=== PATIENT | female | born 1990 | race Caucasian/White ===

== ENCOUNTER 2016-06-17 14:40 | Inpatient (IN) | payer BC, MEDICAID ==
[~2016-06-17] VITALS: Ht 170.2 cm; Wt 85.9 kg
[~2016-06-17 14:40] MED LIST: MOTRIN 600600 MG/TAB PO; PERCOCET 325 MG1 TA2 PO; PRENATAL1 TA1 PO
[2016-07-18] VITALS (16 sets, daily range): BP systolic 109–127; BP diastolic 50–86; PULSE 65–92; TEMP 97.1–98.7
[2016-07-18] MEDS ORDERED: MOTRIN 800800 MG/TAB PO (06:27)
[2016-07-18] MEDS ORDERED: PERCOCET 325 MG1 TA2 PO (06:27)
[2016-07-18 06:40] LABS: BASO % 0.3 % (0.0-2.0); EOS # 0.1 (0.0-0.7); EOS % 0.4 % (0-4.0); GRAN # 9.3 (1.4-6.5); GRAN % 78.3 % (42.2-75.2); HEMOGLOBIN 12.4 g/dl (12.5-16.0); LYMPH # 1.6 (1.2-3.4); LYMPH % 13.5 % (20.0-51.0); MEAN CELL VOLUME 92 fl (80.0-100.0); MEAN CORPUSCULAR HEMOGLOBIN 31 pg (27.0-31.0); MEAN CORPUSCULAR HGB CONC 34 g/dl (33.0-37.0); MEAN PLATELET VOLUME 11.1 fl (7.4-10.4); MONO # 0.8 (0.1-0.6); MONO % 6.7 % (1.7-9.3); PLATELET COUNT 187 K/mm3 (130-400); RED BLOOD COUNT 3.95 M/mm3 (4.10-5.30); REDCELL DISTRIBUTION WIDTH-CV 13.3 % (11.5-14.5); WHITE BLOOD COUNT 11.9 K/mm3 (4.8-10.8)
[2016-07-18 06:46] LABS: HEMATOCRIT 36.3 % (37.0-47.0)
[2016-07-19 07:50] VITALS: BP 107/63; PULSE 69; TEMP 97.6
[2016-07-19 08:12] LABS: HEMATOCRIT 34.7 % (37.0-47.0); HEMOGLOBIN 11.4 g/dl (12.5-16.0)
[2016-07-19] MEDS ORDERED: PERCOCET 325 MG1 TA2 PO (09:53)
[2016-07-19] MEDS ORDERED: IBU800 M1 PO (09:54)
[2016-07-19 16:30] VITALS: BP 98/53; PULSE 68; TEMP 97.7
[2016-07-19 20:00] VITALS: BP 110/70; PULSE 66; TEMP 98.8
[2016-07-20 07:35] VITALS: BP 119/66; PULSE 70; TEMP 97.9
== END 2016-07-20 11:10 | disposition home or self-care (01) | DRG 766 ==
LOC: OB 07-18 05:41 → LDR 07-18 06:20 → OB 07-20 11:10 → EDSTATUS 08-08 06:19 → LDRO 08-08 14:39
PROVIDERS: Obstetrics & Gynecology
PROC: 10D00Z1 Extraction of Products of Conception, Low, Open Approach (ICD-10-PCS; principal; 2016-07-18)
PROC: 0UB70ZZ Excision of Bilateral Fallopian Tubes, Open Approach (ICD-10-PCS; 2016-07-18)
DX: O34.211 Maternal care for low transverse scar from previous cesarean delivery (principal); N85.8 Other specified noninflammatory disorders of uterus; Z40.09 Encounter for prophylactic removal of other organ; O69.81X0 Labor and delivery complicated by cord around neck, without compression, not applicable or unspecified; Z3A.39 39 weeks gestation of pregnancy; Z37.0 Single live birth
CPT/HCPCS: J0690; J1885; J2210; J2250; J2270; J2370; J2405; J2590; J7120

== ENCOUNTER → 2018-03-27 | Outpatient (CLI) | payer BC, MEDICAID ==
[~2018-03-27] MED LIST changes: +IBU800 M1 PO; +MOTRIN 800800 MG/TAB PO
[2018-03-27 16:02] LABS: BASO # 0.1 (0.0-0.2); BASO % 0.6 % (0.0-2.0); EOS % 0.3 % (0-4.0); GRAN # 7.2 (1.4-6.5); HEMATOCRIT 42.7 % (37.0-47.0); HEMOGLOBIN 14.1 g/dl (12.5-16.0); LYMPH % 20.1 % (20.0-51.0); MEAN CELL VOLUME 92 fl (80.0-100.0); MEAN CORPUSCULAR HEMOGLOBIN 30 pg (27.0-31.0); MEAN CORPUSCULAR HGB CONC 33 g/dl (33.0-37.0); MEAN PLATELET VOLUME 10.6 fl (7.4-10.4); MONO # 0.6 (0.1-0.6); MONO % 5.8 % (1.7-9.3); PLATELET COUNT 289 K/mm3 (130-400); RED BLOOD COUNT 4.66 M/mm3 (4.10-5.30); REDCELL DISTRIBUTION WIDTH-CV 12.4 % (11.5-14.5)
== END ==
LOC: COL.LAB 15:45
PROVIDERS: Family Medicine
DX: R10.31 Right lower quadrant pain (principal)